=== PATIENT | male | born 1965 | race African-American/Black ===

== ENCOUNTER 2019-04-30 20:02 | Emergency (ER) | payer OTHER ==
[~2019-04-30] VITALS: Ht 188 cm; Wt 132.0 kg
[2019-05-01 04:53] VITALS: BP 217/120
[2019-05-01] MEDS ORDERED: CLONIDINE 0.2MG TABLET PO ONE (05:00)
== END 2019-05-01 05:34 | disposition home or self-care (01) ==
LOC: ER 20:02
DX: S39.92XA Unspecified injury of lower back, initial encounter (principal); I10 Essential (primary) hypertension; Z90.49 Acquired absence of other specified parts of digestive tract; Z98.890 Other specified postprocedural states; X50.0XXA Overexertion from strenuous movement or load, initial encounter; X50.9XXA Other and unspecified overexertion or strenuous movements or postures, initial encounter; Y93.89 Activity, other specified; Y92.89 Other specified places as the place of occurrence of the external cause; Y99.8 Other external cause status
CPT/HCPCS: 99283